=== PATIENT | male | born 1995 | race Caucasian/White ===

== ENCOUNTER 2023-06-21 07:41 | Outpatient (CLI) | payer OTHER, SELFPAY | END 2023-06-21 07:42 | disposition home or self-care (01) | PROVIDERS: PCP Family Medicine; Visit Provider Family Medicine | DX: R00.2 Palpitations (principal) | CPT/HCPCS: 93306 ==

== ENCOUNTER 2023-07-09 09:30 | Outpatient (CLI) | payer OTHER, SELFPAY | END 2023-07-09 09:31 | disposition home or self-care (01) | PROVIDERS: PCP Family Medicine; Visit Provider Family Medicine | DX: R00.2 Palpitations (principal); R07.9 Chest pain, unspecified; E78.00 Pure hypercholesterolemia, unspecified | CPT/HCPCS: 80053; 80061; 84443 ==

== ENCOUNTER 2023-11-23 14:53 | Emergency (ER) | payer OTHER, SELFPAY ==
[2023-11-23 14:56] VITALS: BP 130/78; PULSE 63; RESP 22; TEMP 36.8; O2SAT 99; BMI 30.4
--- NOTE | 2023-11-23 17:09 | XR_ITS ---
Patient: MANDEEP WILLIS Facility:?[facility] Patient ID:?[id number] Site Patient ID:?[id number]. Site :?[id number] Study:?XRay-Chest 2 VIEW-11/23/2023 6:05:44 PM Ordering Physician:MANAN Final Report: Indication: Chest pain, pounding Technique: Chest 2 views Comparison: None Findings/Impression: Cardiovascular and mediastinum: Heart size and vasculature are normal in caliber and appearance. Mediastinum is within normal limits. Lungs and pleural spaces: Lungs are clear. No sign of infiltrate or mass. No sign of pleural effusion. No pneumothorax. Bones and soft tissues: No significant findings. Dictated by Vimal Meyers MD @ 11/23/2023 6:23:49 PM Signed by:?Vimal Meyers MD @11/23/2023 6:23:49 PM (Electronic Signature)
[2023-11-23 17:27] LABS: Basophils Absolute Auto 0.03 K/uL (0.00-0.30); Basophils Percent Auto 0.4 % (0.0-3.0); Eosinophils Absolute Auto 0.06 K/uL (0.00-0.50); Eosinophils Percent Auto 0.8 % (0.0-7.0); Hematocrit 44.3 % (37.0-53.0); Hemoglobin* 14.3 gm/dL (13.5-17.5); Immature Granulocytes Abs Auto 0.01 K/uL (0.00-0.30); Immature Granulocytes Pct Auto 0.1 %; Lymphocytes Absolute Auto 2.01 K/uL (0.90-2.90); Lymphocytes Percent Auto 27.1 % (20-44); Mean Corpuscular HGB Conc 32 gm/dL (32-36); Mean Corpuscular Hemoglobin 29 pg (26-34); Mean Corpuscular Volume 89 fL (80-100); Monocytes Percent Auto 10.3 % (0.0-11.0); Neutrophils Absolute Auto 4.54 K/uL (1.7-7.0); Neutrophils Percent Auto 61.3 % (42.0-72.0); Platelet Count* 253 K/uL (140-440); RDW Coefficient of Variation % 12.3 % (11.5-15.5); Red Blood Count 4.96 m/uL (4.30-5.90); White Blood Count* 7.41 K/uL (4.50-11.00)
[2023-11-23 17:32] VITALS: BP 132/80; PULSE 57; RESP 14; O2SAT 98
[2023-11-23 17:32] LABS: Slide Review Reflex No
[2023-11-23 18:02] VITALS: BP 119/80; PULSE 55; RESP 16; O2SAT 100
[2023-11-23 18:14] LABS: Albumin* 5.2 g/dL (3.3-5.0); Chloride* 103 mmol/L (96-114)
[2023-11-23 18:15] LABS: Potassium* 4.4 mmol/L (3.6-5.1); Sodium* 139 mmol/L (135-149)
[2023-11-23 18:17] LABS: Creatinine* 0.8 mg/dL (0.5-1.5); Est. Creatinine Clearance* 130.63; Estimated Glomerular Filt Rate 122 ml/min
[2023-11-23 18:18] LABS: Alanine Aminotransferase* 25 U/L (4-50); Alkaline Phosphatase* 69 U/L (40-150); Anion Gap 9 mEq/L (7-15); Aspartate Amino Transferase* 37 U/L (12-35); Bilirubin Direct* 0.2 mg/dL (0.0-0.5); Bilirubin Total* 0.4 mg/dL (0.1-1.5); Blood Urea Nitrogen* 15 mg/dL (5-24); Calcium* 9.8 mg/dL (8.4-10.6); Carbon Dioxide* 27 mmol/L (20-32); Glucose* 90 mg/dL (60-115); Lipase* 89 U/L (23-300); Total Protein* 8.7 g/dL (6.0-8.3)
[2023-11-23 18:29] LABS: Erythrocyte SedimentationRate* 5 mm/hr (2-15)
[2023-11-23 18:32] VITALS: BP 126/87; PULSE 58; RESP 14; O2SAT 98
[2023-11-23 18:33] LABS: C Reactive Protein* < 0.5 mg/dL (0.5-1.0); Troponin I* < 0.01 ng/mL (0.01-0.04)
--- NOTE | 2023-11-23 18:35 | ED_ITS ---
HPI - General Adult General Chief complaint: Chest Pain Stated complaint: Chest pain/pounding Time Seen by Provider: 11/23/23 16:49 Source: patient Mode of arrival: ambulatory Limitations: no limitations History of Present Illness HPI narrative: 28-year-old male presenting today with chest pain going on for 7 days. Pain comes and goes lasts anywhere from 22nd-20 minutes. It feels like it is worse when he is doing physical activity. Patient works in construction and notice at that it comes more often when he is at work. He states that has happened at night only twice. He denies feeling short of breath, diaphoretic or dizzy. He states he does have a history of reflux but this pain is more off to the left and his reflux was more in the center. The pain can be dull, sharp, aching or burning in sensation. It does not prevent him from doing his daily physical activities. He did have chest pain earlier this year he had a echocardiogram as well as a Holter monitor as he was also having palpitations in both these tests were unremarkable. He was sent home Xanax. He states that he did take a Xanax and he was chest pain free for approximately 5 hours. Patient tells me that he did go on [employer] and he is concerned about heart attack or acid extravasation into his trachea. Patient has had no cigarette use since May. Related Data Previous Rx's ?Medication ?Instructions ?Recorded alprazolam 1 mg tablet See Rx Instructions PO .ud PRN 07/20/23 anxiety #20 tabs Allergies Allergy/AdvReac Type Severity Reaction Status Date / Time No Known Drug Allergies Allergy Verified 07/20/23 13:50 Review of Systems Status of ROS: Reports: 10 or more systems reviewed and unremarkable except as noted in History and below [facility] Social History Smoking Status: Never smoker Do you use any of these nicotine containing products: None How often do you have a drink containing alcohol: never AUDIT-C Alcohol total score: 0 Non-prescribed substance use: denies use Little interest or pleasure in doing things: several days Feeling down, depressed, or hopeless: several days Exam Narrative: Exam Narrative: Well-nourished well-developed patient in no acute distress. Alert and oriented. Answers questions appropriately. Mood and affect are appropriate. Thoughts are goal oriented and rational. No tangential or magical thinking noted. Patient speaks in full sentences without needing to catch his breath. HEENT: Normocephalic atraumatic. Pupils are equally round reactive to light. Extraocular muscles are intact. Conjunctivae are moist without any icterus noted. Moist mucous membranes. Posterior pharynx is normal. Neck is soft without any lymphadenopathy or thyromegaly. No masses are appreciated. Cardiovascular: Heart is regular rate and rhythm S1 and S2 are present without any murmurs. Lungs: Clear to auscultation bilaterally no wheezes rhonchi or rales are appreciated. Patient takes deep breaths without any discomfort. I cannot reproduce his pain with palpation. Abdomen: Soft and nontender nondistended with normal bowel sounds. No guarding or rebound. Extremities: Bilateral lower extremities are without edema. Skin: Well perfused without any obvious rashes. Const: Vital Signs, click to edit/add: Vital Signs - 24 hr 11/23/23 14:56 11/23/23 17:32 11/23/23 18:02 Temperature 98.2 F Pulse Rate 57 L 55 L Pulse Rate [Pulse Oximeter] 63 Respiratory Rate 22 14 16 Blood Pressure 132/80 119/80 Blood Pressure [Ri ght Upper Arm] 130/78 Pulse Oximetry 99 98 100 Oxygen Delivery Me thod Room Air Course Course ED Course: Differential diagnosis includes reflux, pericarditis, myocarditis, pneumonia, pneumothorax, anxiety. Given his age and symptoms I think that cardiovascular disease is very unlikely. EKG, read by me, shows normal sinus rhythm with a pulse of 60. His blood work was entirely unremarkable. Chest x-ray, read by me, does not show any acute pathology. Vital Signs Vital signs: Initial Vital Signs Temperature 98.2 F 11/23/23 14:56 Temperature Source Temporal Artery Scan 11/23/23 14:56 Pulse Rate 63 11/23/23 14:56 Respiratory Rate 22 11/23/23 14:56 Blood Pressure 130/78 11/23/23 14:56 Blood Pressure Mean 95 11/23/23 14:56 Blood Pressure Position Sitting 11/23/23 14:56 Pulse Oximetry 99 11/23/23 14:56 Oxygen Delivery Method Room Air 11/23/23 14:56 Vital Signs Temperature 98.2 F 11/23/23 14:56 Pulse Rate 63 11/23/23 14:56 Respiratory Rate 22 11/23/23 14:56 Blood Pressure 130/78 11/23/23 14:56 Pulse Oximetry 99 11/23/23 14:56 Oxygen Delivery Method Room Air 11/23/23 14:56 Temperature 98.2 F 11/23/23 14:56 Pulse Rate 55 L 11/23/23 18:02 Respiratory Rate 16 11/23/23 18:02 Blood Pressure 119/80 11/23/23 18:02 Pulse Oximetry 100 11/23/23 18:02 Oxygen Delivery Method Room Air 11/23/23 14:56 Medical Decision Making MDM Narrative Medical decision making narrative: 28-year-old male with recurrent chest pain. Likely due to reflux or anxiety. Given that this will likely be an ongoing issue for him I do not think that doing a baseline stress test is a bad idea. Recommend he follow up with primary care provider. Lab Data Lab results reviewed: Yes I reviewed the patient's lab results Labs: Lab Results 11/23/23 Range/Units 17:20 WBC 7.41 (4.50-11.00) K/uL RBC 4.96 (4.30-5.90) m/uL Hgb 14.3 (13.5-17.5) gm/dL Hct 44.3 (37.0-53.0) % MCV 89 (80-100) fL MCH 29 (26-34) pg MCHC 32 (32-36) gm/dL RDW Coeff of Leidy 12.3 (11.5-15.5) % Plt Count 253 (140-440) K/uL Neut % (Auto) 61.3 (42.0-72.0) % Lymph % (Auto) 27.1 (20-44) % [place] % (Auto) 10.3 (0.0-11.0) % Eos % (Auto) 0.8 (0.0-7.0) % Baso % (Auto) 0.4 (0.0-3.0) % Neut # (Auto) 4.54 (1.7-7.0) K/uL Lymph # (Auto) 2.01 (0.90-2.90) K/uL [place] # (Auto) 0.80 (0.00-0.90) K/UL Eos # (Auto) 0.06 (0.00-0.50) K/uL Baso # (Auto) 0.03 (0.00-0.30) K/uL Abs Immat Gran (auto) 0.01 (0.00-0.30) K/uL Imm/Tot Granulo (auto) 0.1 % ESR 5 (2-15) mm/hr Sodium 139 (135-149) mmol/L Potassium 4.4 (3.6-5.1) mmol/L Chloride 103 (96-114) mmol/L Carbon Dioxide 27 (20-32) mmol/L Anion Gap 9 (7-15) mEq/L BUN 15 (5-24) mg/dL Creatinine 0.8 (0.5-1.5) mg/dL Estimated Creat Clear 130.63 Estimated GFR 122 ml/min Glucose 90 (60-115) mg/dL Calcium 9.8 (8.4-10.6) mg/dL Total Bilirubin 0.4 (0.1-1.5) mg/dL Direct Bilirubin 0.2 (0.0-0.5) mg/dL AST 37 H (12-35) U/L ALT 25 (4-50) U/L Alkaline Phosphatase 69 (40-150) U/L Troponin I < 0.01 L (0.01-0.04) ng/mL C-Reactive Protein < 0.5 L (0.5-1.0) mg/dL Total Protein 8.7 H (6.0-8.3) g/dL Albumin 5.2 H (3.3-5.0) g/dL Lipase 89 (23-300) U/L Imaging Data Chest x-ray: Attestation: I have reviewed the pertinent imaging results. Radiologist's impression: Chest 2 views Comparison: None Findings/Impression: Cardiovascular and mediastinum: Heart size and vasculature are normal in caliber and appearance. Mediastinum is within normal limits. Lungs and pleural spaces: Lungs are clear. No sign of infiltrate or mass. No sign of pleural effusion. No pneumothorax. Bones and soft tissues: No significant findings. ECG Data Attestation: I personally reviewed and interpreted this ECG as follows: Discharge Plan Discharge Clinical Impression: Atypical chest pain Patient Disposition: Home, Self-Care Condition: Stable Additional Instructions: He workup was entirely normal today. I recommend you follow-up with your primary care provider to discuss treatment for both reflux and/or anxiety. Also, doing a baseline stress test might not be a bad idea-this is something that you should discuss with your primary care provider. Prescriptions: No Action alprazolam 1 mg tablet See Rx Instructions PO .ud PRN (Reason: anxiety) Qty: 20 0RF Rx Instructions: 1/2 to 1 tab tid prn orally UD PRN; Follow Up/Referrals: Clifton Muñoz MD [Primary Care Provider] - Stand Alone Forms: [employer] Info Instructions
[2023-11-23 18:47] VITALS: BP 130/78; PULSE 63; RESP 14; TEMP 36.8
== END 2023-11-23 18:48 | disposition home or self-care (01) ==
PROVIDERS: Emergency Provider Family Medicine; PCP Family Medicine
DX: R07.9 Chest pain, unspecified (principal)
CPT/HCPCS: 36415; 71046; 80048; 80076; 83690; 84484; 85025; 85651; 86140; 93005; 99284

== ENCOUNTER 2024-01-04 14:44 | Outpatient (CLI) | payer OTHER, SELFPAY ==
[2024-01-04 15:33] VITALS: BP 120/80; PULSE 90; RESP 18
--- NOTE | 2024-01-04 15:40 | W.PM.STED ---
Stress Test Note Date Date of test: 01/04/24 Providers Primary care provider: Clifton Muñoz Stress test physician: Cristi Hood Stress Test Note Stress test ordered: Stress Echo Indication for test: chest pain Results discussion: This pleasant 28-year-old gentleman presents for the above test after discussion the risks benefits and side effects he would like to proceed pretest EKG shows normal sinus rhythm, ventricular rate 64 blood pressure 114 and 62. Standard Jus protocol is employed over a time course of 10 minutes, and he achieved a metabolic equivalent of 11.5 Mets with a maximum heart rate of 184. No acute ST wave changes are noted. He had no chest pain, test is terminated because of fatigue, and 5th film it of protocol. Review of the tracing did not show any dysrhythmias, there is no ST wave changes suggestive of ischemia. Conditioning was felt to be good Impression: Negative electrographic portion of stress echo, no subjective symptoms Follow up suggested: Await cardiology's review of the echo portion of this test, clinical correlation with that will be needed, but patient did well, and recovered normally and discharge from this facility with no complications.
--- NOTE | 2024-01-04 15:43 | W.PM.STED ---
Stress Test Note Date Date of test: 01/04/24 Providers Primary care provider: Clifton Muñoz Stress test physician: Cristi Hood Stress Test Note Stress test ordered: Stress Echo Indication for test: Chest pain Results discussion: This very nice gentleman presents for the above test, after discussion the risks benefits and side effects he would like to proceed, pretest EKG shows normal sinus rhythm with a rate of 59, blood pressure is 100/62. Standard Jus protocol is employed over a time course of 12 minutes, he achieved a metabolic equivalent of 12.1 with a maximum heart rate of 157 which is 115% of the maximum. Test is terminated because of fulfillment of protocol he really did have significant fatigue or shortness of breath. Review of the tracing showed no ST wave changes suggestive of ischemia, no subjective symptoms Impression: Negative electrographic portion of stress echo, conditioning was felt to be good. Follow up suggested: Await cardiology's review of the echo portion of this, clinical correlation with this will be needed, but patient did well, with excellent conditioning noted. If further testing is needed, myocardial perfusion scan is suggested such as exercise Myoview.
== END 2024-01-04 15:34 | disposition home or self-care (01) ==
LOC: STRESS 14:44
PROVIDERS: PCP Family Medicine; Visit Provider Family Medicine
DX: R07.9 Chest pain, unspecified (principal); R00.2 Palpitations
CPT/HCPCS: 93016; 93325; 93351